=== PATIENT | female | born 1975 | race Caucasian/White ===

== ENCOUNTER 2016-09-15 19:27 | Emergency (ER) | payer OTHER ==
[~2016-09-15] VITALS: Ht 170.2 cm; Wt 88.5 kg
[2016-09-15 19:40] VITALS: BP 145/78
--- NOTE | 2016-09-15 20:10 | ED DYSPNEA/ASTHMA COMPLAINT ---
History of Present Illness General Chief Complaint: Upper Respiratory Sx/Fever Stated Complaint: COUGH, DIFF BREATHING Source: patient Exam Limitations: no limitations Vital Signs & Intake/Output Vital Signs & Intake/Output Vital Signs Date Time Temp Pulse Resp B/P B/P Pulse O2 O2 Flow FiO2 Mean Ox Delivery Rate 09/15 2014 98 Room Air 09/15 1940 98.6 80 20 145/78 98 Room Air ED Intake and Output 09/16 0000 09/15 1200 Intake Total 0 Output Total Balance 0 Intake, IV 0 Patient 195 lb Weight Weight Reported by Patient Measurement Method Allergies Coded Allergies: No Known Allergies (09/15/16) Reconcile Medications Albuterol Sulfate (Ventolin Hfa) 90 MCG HFA.AER.AD 2 PUF INH Q4-6 PRN PRN ASTHMA Azithromycin (Zithromax) 250 MG TABLET 1 DP PO AD BRONCHITIS 2 the first day followed by 1 for days 2-5 Prednisone 50 MG TABLET 1 TAB PO DAILY BRONCHITIS/ASTHMA Promethazine HCl/Codeine (Prometh-Codein 6.25-10 MG/5 Ml) 6.25 MG-10 MG/5 ML (5 ML) SYRUP 1-2 TSP PO TID PRN BRONCHITIS NINETY CC.... [id number] Triage Note: TRIAGE: PT TO ER C/C COUGH AND DIFF BREATHING X 1 MONTH. STATES "I HAD A COLD. IT SEEMED TO GET A LITTLE BETTER. THEN ALLERGIES KICK IN. IT'S LIKE AN ASTHMA ATTACK." HAS HX OF SPORTS INDUCED ASTHMA, HAS NOT HAD PROBLEMS WITH SAME IN A LONG TIME AND NO LONGER HAS INHALERS. Triage Nurses Notes Reviewed? yes Onset: Gradual Duration: week(s):, waxing and waning Timing: recent history Severity: moderate Activities at Onset: none Prior Episodes/Possible Cause: occasional episodes Modifying Factors: Improves With: other (better with Inhalers). Associated Symptoms: cough, wheezing : No Patient currently breastfeeds: No HPI: 41-year-old woman history of asthma and seasonal allergies presents with 4 week history of intermittent coughing, wheezing, dyspnea. She states that she's been taking her albuterol often, "it helps but not completely. I think it's because the weather has been changing so much." She notes that her cough is productive of sputum. Past History Travel History Traveled to [place] past 21 day No Medical History Any Pertinent Medical History? see below for history Neurological: NONE EENT: NONE Cardiovascular: NONE Respiratory: SPORTS INDUCED ASTHMA Gastrointestinal: NONE Hepatic: NONE Renal: NONE Musculoskeletal: NONE Psychiatric: NONE Endocrine: NONE Blood Disorders: NONE Cancer(s): NONE MEDICAL TRANSPORT SPECIALIST/Reproductive: NONE Surgical History Surgical History: none Psychosocial History What is your primary language Yakut Tobacco Use: Never used ETOH Use: occasional use Illicit Drug Use: denies illicit drug use Family History Hx Contributory? No Review of Systems Review of Systems Constitutional: Reports: no symptoms. EENTM: Reports: no symptoms. Respiratory: Reports: no symptoms. Cardiovascular: Reports: no symptoms. GI: Reports: no symptoms. Genitourinary: Reports: no symptoms. Musculoskeletal: Reports: no symptoms. Skin: Reports: no symptoms. Neurological/Psychological: Reports: no symptoms. Hematologic/Endocrine: Reports: no symptoms. Immunologic/Allergic: Reports: no symptoms. All Other Systems: Reviewed and Negative Physical Exam Physical Exam General Appearance: well developed/nourished, mild distress Head: atraumatic, normal appearance Eyes: Bilateral: normal appearance. Ears, Nose, Throat: normal pharynx, normal ENT inspection Neck: normal inspection, supple, full range of motion Respiratory: rhonchi Cardiovascular: regular rate/rhythm Gastrointestinal: normal bowel sounds, soft, non-tender Extremities: normal inspection, normal capillary refill, normal range of motion Neurologic/Psych: no motor/sensory deficits, awake, alert, oriented x 3 Skin: intact, normal color, warm/dry Core Measures ACS in differential dx? No Severe Sepsis Present: No Septic Shock Present: No Progress Differential Diagnosis: asthma, bronchitis, COPD Plan of Care: Bronchitis versus asthma exacerbation versus other. I doubt pneumonia given symmetric well aerated breath sounds Initial ED EKG: none Departure Departure Disposition: HOME OR SELF CARE Condition: Stable Clinical Impression Primary Impression: Bronchitis Referrals: PATIENT HAS NO PRIMARY CARE DR (PCP/Family) Departure Forms: Customer Survey General Discharge Information Prescriptions: Current Visit Scripts Prednisone 1 TAB PO DAILY #5 TAB Azithromycin (Zithromax) 1 DP PO AD #6 TAB 2 the first day followed by 1 for days 2-5 Albuterol Sulfate (Ventolin Hfa) 2 PUF INH Q4-6 PRN PRN ASTHMA #1 INHAL Ref 3 Promethazine HCl/Codeine (Prometh-Codein 6.25-10 MG/5 Ml) 1-2 TSP PO TID PRN BRONCHITIS #90 ML NINETY CC.... [id number] Comments Given the duration of her symptoms, now with productive sputum, I will treat with steroids, albuterol, and antibiotics. Close follow-up advised with her PMD. Critical Care Note Critical Care Note Critical Care Time: non-applicable
[2016-09-15] MEDS ORDERED: ZITHROMAX250 M2 PO (20:12)
[2016-09-15] MEDS ORDERED: PREDNISONE50 M1 PO (20:12)
[2016-09-15] MEDS ORDERED: VENTOLIN HFA18 GM INH (20:12)
[2016-09-15] MEDS ORDERED: PROMETH-CODEIN 65 ML PO (20:12)
== END 2016-09-15 20:26 ==
LOC: ERH 19:27
DX: J40 Bronchitis, not specified as acute or chronic (principal)